=== PATIENT | male | born 1945 | race African-American/Black ===

== ENCOUNTER → 2019-04-22 | Outpatient (CLI) | payer OTHER ==
[~2019-04-22] MED LIST: ASPIRIN325 PO; BAYER CHEWABLE81 MG PO; BENICAR20 MG PO; CARVEDILOL25 MG PO; CARVEDILOL6.25 MG PO; COQ-10100 MG PO; FISH OIL 1,001000 M2 PO; KEFLEX250 MG PO; METFORMIN HCL500 MG PO; PACERONE 200 M200 M1 PO; SPIRIVA INH; VENTOLIN HFA 1818 GM INH
== END ==
LOC: SJCVC 11:16
DX: Z45.02 Encounter for adjustment and management of automatic implantable cardiac defibrillator (principal); I50.42 Chronic combined systolic (congestive) and diastolic (congestive) heart failure; I47.2 Ventricular tachycardia; Z95.810 Presence of automatic (implantable) cardiac defibrillator

== ENCOUNTER → 2019-10-01 | Outpatient (CLI) | payer OTHER | LOC: SJCVC 14:33 | PROVIDERS: ATTEND Internal Medicine | DX: Z45.02 Encounter for adjustment and management of automatic implantable cardiac defibrillator (principal); R94.31 Abnormal electrocardiogram [ECG] [EKG]; I42.9 Cardiomyopathy, unspecified; I11.0 Hypertensive heart disease with heart failure; I50.42 Chronic combined systolic (congestive) and diastolic (congestive) heart failure; E78.5 Hyperlipidemia, unspecified; E11.9 Type 2 diabetes mellitus without complications; Z79.899 Other long term (current) drug therapy; Z87.891 Personal history of nicotine dependence ==

== ENCOUNTER → 2020-04-07 | Outpatient (CLI) | payer OTHER | LOC: SJCVC 10:14 | PROVIDERS: ATTEND Internal Medicine | DX: R94.31 Abnormal electrocardiogram [ECG] [EKG] (principal); I11.0 Hypertensive heart disease with heart failure; I50.42 Chronic combined systolic (congestive) and diastolic (congestive) heart failure; I42.9 Cardiomyopathy, unspecified; E78.5 Hyperlipidemia, unspecified; E11.9 Type 2 diabetes mellitus without complications; Z95.810 Presence of automatic (implantable) cardiac defibrillator; Z79.82 Long term (current) use of aspirin; Z79.899 Other long term (current) drug therapy; Z87.891 Personal history of nicotine dependence; Z88.8 Allergy status to other drugs, medicaments and biological substances ==

== ENCOUNTER → 2020-04-20 | Outpatient (CLI) | payer OTHER | LOC: SJCVC 12:54 | PROVIDERS: ATTEND Internal Medicine | DX: I42.9 Cardiomyopathy, unspecified (principal); E87.5 Hyperkalemia; E11.9 Type 2 diabetes mellitus without complications; J44.9 Chronic obstructive pulmonary disease, unspecified; I25.5 Ischemic cardiomyopathy; I50.9 Heart failure, unspecified; I11.0 Hypertensive heart disease with heart failure; I47.2 Ventricular tachycardia; E78.5 Hyperlipidemia, unspecified; Z86.74 Personal history of sudden cardiac arrest; Z95.810 Presence of automatic (implantable) cardiac defibrillator ==

== ENCOUNTER → 2020-10-19 | Outpatient (CLI) | payer OTHER | LOC: SJCVC 13:06 | PROVIDERS: ATTEND Internal Medicine | DX: I42.9 Cardiomyopathy, unspecified (principal); I11.0 Hypertensive heart disease with heart failure; I50.42 Chronic combined systolic (congestive) and diastolic (congestive) heart failure; E78.5 Hyperlipidemia, unspecified; I73.9 Peripheral vascular disease, unspecified; E11.51 Type 2 diabetes mellitus with diabetic peripheral angiopathy without gangrene; R94.31 Abnormal electrocardiogram [ECG] [EKG]; J44.9 Chronic obstructive pulmonary disease, unspecified; Z95.810 Presence of automatic (implantable) cardiac defibrillator; Z98.61 Coronary angioplasty status; Z88.8 Allergy status to other drugs, medicaments and biological substances; Z79.84 Long term (current) use of oral hypoglycemic drugs; Z79.82 Long term (current) use of aspirin; Z79.899 Other long term (current) drug therapy; Z87.891 Personal history of nicotine dependence ==

== ENCOUNTER → 2020-11-05 | Outpatient (CLI) | payer OTHER | LOC: SJCVC 14:05 | PROVIDERS: ATTEND Internal Medicine | DX: I42.9 Cardiomyopathy, unspecified (principal); I11.0 Hypertensive heart disease with heart failure; I50.42 Chronic combined systolic (congestive) and diastolic (congestive) heart failure; E78.5 Hyperlipidemia, unspecified; J44.9 Chronic obstructive pulmonary disease, unspecified; E11.51 Type 2 diabetes mellitus with diabetic peripheral angiopathy without gangrene; I73.9 Peripheral vascular disease, unspecified; Z95.810 Presence of automatic (implantable) cardiac defibrillator; Z88.8 Allergy status to other drugs, medicaments and biological substances; Z79.82 Long term (current) use of aspirin; Z79.84 Long term (current) use of oral hypoglycemic drugs; Z79.899 Other long term (current) drug therapy; Z87.891 Personal history of nicotine dependence ==

== ENCOUNTER → 2020-11-16 | Outpatient (CLI) | payer OTHER | LOC: SJCVC 15:52 | PROVIDERS: ATTEND Internal Medicine | DX: R07.89 Other chest pain (principal); E11.9 Type 2 diabetes mellitus without complications; J44.9 Chronic obstructive pulmonary disease, unspecified; I42.9 Cardiomyopathy, unspecified; Z79.899 Other long term (current) drug therapy ==

== ENCOUNTER → 2021-03-12 | Outpatient (CLI) | payer OTHER | LOC: SJCVC 14:16 | PROVIDERS: ATTEND Internal Medicine | DX: R94.31 Abnormal electrocardiogram [ECG] [EKG] (principal); I42.9 Cardiomyopathy, unspecified; E11.9 Type 2 diabetes mellitus without complications; I11.0 Hypertensive heart disease with heart failure; I50.42 Chronic combined systolic (congestive) and diastolic (congestive) heart failure; E78.5 Hyperlipidemia, unspecified; I31.3 Pericardial effusion (noninflammatory); Z95.810 Presence of automatic (implantable) cardiac defibrillator; J44.9 Chronic obstructive pulmonary disease, unspecified; I73.9 Peripheral vascular disease, unspecified; Z79.899 Other long term (current) drug therapy; Z88.8 Allergy status to other drugs, medicaments and biological substances ==

== ENCOUNTER → 2021-03-23 | Outpatient (CLI) | payer OTHER | LOC: SJCVC 10:28 | PROVIDERS: ATTEND Internal Medicine Cardiovascular Disease | DX: R94.31 Abnormal electrocardiogram [ECG] [EKG] (principal); I47.2 Ventricular tachycardia; I42.9 Cardiomyopathy, unspecified; I46.9 Cardiac arrest, cause unspecified; I11.0 Hypertensive heart disease with heart failure; I50.9 Heart failure, unspecified; E78.5 Hyperlipidemia, unspecified; J44.9 Chronic obstructive pulmonary disease, unspecified; E11.9 Type 2 diabetes mellitus without complications; Z45.02 Encounter for adjustment and management of automatic implantable cardiac defibrillator; Z95.810 Presence of automatic (implantable) cardiac defibrillator; Z88.8 Allergy status to other drugs, medicaments and biological substances; Z79.82 Long term (current) use of aspirin; Z79.899 Other long term (current) drug therapy; Z87.891 Personal history of nicotine dependence; Z72.89 Other problems related to lifestyle ==

== ENCOUNTER → 2021-04-12 | Outpatient (CLI) | payer OTHER ==
[~2021-04-12] VITALS: Ht 177.8 cm; Wt 71.8 kg
[~2021-04-12] MED LIST changes: +ALBUTEROL2.5 MG/31 INH; +ALLER-FEX180 MG PO; +CARVEDILOL12.5 MG PO; +CRANBERRY450 M2 PO; +DICYCLOMINE HCL20 MG PO; +FEXOFENADINE-P1 EACH PO; +FLOMAX0.4 MG PO; +FUROSEMIDE 20 M20 MG PO; +INCRUSE ELLI62.5 MCG; +KLOR-CON M2020 MEQ PO; +MEXILETINE 150150 MG PO; +PROTONIX40 M2 PO; +REPAGLINIDE2 MG PO; +VENTOLIN HFA INH8 GM INH; +VITAMIN B-121000 MC2 PO
[2021-04-12 10:18] LABS: BASOPHILS 1.1 % (0.0-2.0); EOSINOPHILS 4.9 % (0.0-3.0); HEMATOCRIT 43.8 % (42.0-52.0); HEMOGLOBIN 14.1 gm/dL (14.0-18.0); LYMPHOCYTES 29.5 % (24.0-44.0); MCH 32.4 pg (26.0-34.0); MCHC 32.3 g/dL (28.0-37.0); MCV 100.4 fL (80.0-100.0); MONOCYTES 18.9 % (1.0-8.0); PLATELET COUNT 150 thou/uL (150-400); POLYS 45.6 % (36.0-66.0); RBC 4.36 mil/uL (4.50-6.00); RDW 15.2 % (10.5-14.5); WBC 4.3 thou/uL (4.0-11.0)
[2021-04-12 10:21] VITALS: BP 124/78
[2021-04-12 10:28] LABS: CALCIUM 9.5 mg/dL (8.5-10.1); CREATININE 1.8 mg/dL (0.7-1.3); POTASSIUM 4.2 mmol/L (3.5-5.1)
[2021-04-12 10:30] LABS: APTT 33.5 Seconds (24.5-32.8); INR 1.14; PROTIME 12.4 Seconds (10.5-12.1)
[2021-04-12 10:33] LABS: ALBUMIN 3.9 g/dL (3.4-5.0); TOTAL BILIRUBIN 0.9 mg/dL (0.2-1.0); TOTAL PROTEIN 8.2 g/dL (6.4-8.2)
--- NOTE | 2021-04-26 08:23 | P ---
[facility] [place] [address] PROCEDURE REPORT Name: RON FLETCHER MARION Room #: REG [place] Paula#: [id number] Admission: 04/12/21 Attend Phys: James Zeng MD Discharge: Date of : 45 Report #: [id number] THIS REPORT FOR: cc: Sivakumar Loo MD, Michael D. MD Couchonnal, Luis F. MD ~ DATE OF SERVICE: 04/12/2021 DATE OF PROCEDURE: 04/12/2021 PROCEDURE: ICD generator exchange. PREOPERATIVE DIAGNOSES: Implantable cardioverter-defibrillator EWA. POSTOPERATIVE DIAGNOSIS: Implantable cardioverter-defibrillator EWA. INDICATION: The patient is 76-year-old, status post ICD, whose device is at the EWA, here for generator exchange. ANESTHESIA: The patient underwent MAC anesthesia with no anesthesia-related complications. DESCRIPTION OF PROCEDURE: The patient underwent informed consent. We discussed the details of the procedure including the risks, which included, but not limited to bleeding, infection, vascular damage, need for possible lead revisions. He understood these risks and is willing to proceed. The patient was brought to the EP laboratory in fasting and sedated state, prepped and draped in a standard fashion, receiving IV antibiotics prior to initiation of the procedure. I injected lidocaine at the prior incision site. Incision was made. Chronic pocket was entered. Old device was disconnected. Leads were tested and found to be functioning normally. New device connected, tug test performed. Pocket was irrigated with vancomycin and pocket closed in 2 layers and surgical glue was placed to outer skin layer. No procedure related complications. The explanted device was a [employer] model number [id number], serial number [id number]. The newly implanted device was a [id number], serial number [id number]. The atrial lead was a 5076, 52 cm, serial number [id number]. RV lead was a 6947, 65 cm, serial number [id number]. Atrial lead demonstrated P-wave of 0.7 millivolts, pacing impedance of 331 ohms, pacing threshold 0.5 volts at 0.5 milliseconds. RV lead demonstrated R waves of 11 millivolts, pacing impedance 357 ohms, pacing threshold 1 volt at 0.5 milliseconds. The device was programmed back to its original settings. [facility] [id number] [place] [address] PROCEDURE REPORT Name: RON FLETCHER MARION Room #: BI Mitchell#: [id number] Admission: 04/12/21 Attend Phys: James Zeng MD Discharge: Date of : 45 Report #: [id number] CONCLUSION: Successful ICD generator exchange. <ELECTRONICALLY SIGNED> By: James Zeng MD 04/26/21 0823 [id number] [id number] James Zeng MD /nt
== END | disposition home or self-care (01) ==
LOC: CATH 07:49
PROVIDERS: ATTEND Internal Medicine Cardiovascular Disease
DX: Z45.02 Encounter for adjustment and management of automatic implantable cardiac defibrillator (principal); I42.9 Cardiomyopathy, unspecified; I49.9 Cardiac arrhythmia, unspecified; I11.0 Hypertensive heart disease with heart failure; I50.9 Heart failure, unspecified; E11.9 Type 2 diabetes mellitus without complications; E78.5 Hyperlipidemia, unspecified; J44.9 Chronic obstructive pulmonary disease, unspecified; K21.9 Gastro-esophageal reflux disease without esophagitis; F31.9 Bipolar disorder, unspecified; I25.2 Old myocardial infarction; Z98.890 Other specified postprocedural states; Z79.899 Other long term (current) drug therapy; Z87.891 Personal history of nicotine dependence; Z20.822 Contact with and (suspected) exposure to COVID-19
CPT/HCPCS: 62110; 62900; 70005